=== PATIENT | male | born 1950 | race Hispanic/Latino ===

== ENCOUNTER 2018-12-04 11:04 | Day surgery (SDC) | payer MEDICARE ==
[2018-11-27 12:37] VITALS: BMI 17.9
--- NOTE | 2018-12-04 12:04 | CARD ---
APPROVED REPORT Date of service: 12/04/2018 EKG Measurement Heart [id number] <Conclusion> Atrial fibrillation Left axis deviation Low voltage QRS Abnormal ECG
[2018-12-04] MEDS ORDERED: Midazolam 2 MG/2 ML VIAL ONE (12:38)
[2018-12-04] MEDS ORDERED: Propofol 10 mg/ml Inj (20 ML) ONE (12:44)
[2018-12-04] MEDS ORDERED: Phenylephrine 10 mg/ml Inj ONE (12:45)
[2018-12-04] MEDS ORDERED: Etomidate 20 mg/10ml Inj IV ONE (12:45)
[2018-12-04] MEDS ORDERED: ePHEDrine 50 mg/ml Inj ONE (12:45)
[2018-12-04] MEDS ORDERED: Lactated Ringer's 1,000 ML IV SCH (13:30)
[2018-12-04 14:27] VITALS: RESP 20; TEMP 97.7; O2SAT 97
[2018-12-04 15:28] VITALS: BP 115/82; PULSE 55
--- NOTE | 2018-12-04 17:54 | CARD ---
APPROVED REPORT Date of service: 12/04/2018 EKG Measurement Heart [id number] <Conclusion> Sinus bradycardia Low voltage QRS Left anterior fascicular block Inferior infarct, age undetermined Abnormal ECG
--- NOTE | 2018-12-05 13:27 | CARD ---
APPROVED REPORT Date of service: 12/04/2018 EXAM: Transesophageal echocardiogram with color flow Doppler and Synchronized Cardioversion. INDICATION Atrial Fibrillation Mitral Valve E/A ratio0.0 TDI E/Lateral E'0.0E/Medial E'0.0 PROCEDURE After obtaining informed consent, patient underwent transesophageal echo in the Type of Sedation : Conscious Sedation Sedation was provided by anesthesiologist. Sedation was achieved with intravenously. The FLYNN was performed complications. Throughout the procedure, the blood pressure, pulse oximetry, cardiac rhythm, and rate were monitored. LEFT VENTRICLE The left ventricle is normal size. There is normal left ventricular wall thickness. The left ventricular function is normal. The left ventricular ejection fraction is within the normal range. There is normal LV segmental wall motion. No left ventricle thrombus noted on this study. There is no ventricular septal defect visualized. There is no left ventricular aneurysm. There is no mass noted in the left ventricle. RIGHT VENTRICLE The right ventricle is normal size. There is normal right ventricular wall thickness. The right ventricular systolic function is normal. ATRIA Velocities greater than 0.4 MS The left atrium is moderately dilated. There is no thrombus suspected in the left atrium. The right atrium size is normal. Buble study and color doppler consistent with smal PFO. AORTIC VALVE The aortic valve is normal in structure. No aortic regurgitation is present. There is no aortic valvular stenosis. There is no aortic valvular vegetation. MITRAL VALVE The mitral valve is normal in structure. There is no evidence of mitral valve prolapse. There is no mitral valve stenosis. Mitral regurgitation is mild to moderate. TRICUSPID VALVE The tricuspid valve is normal in structure. There is no tricuspid valve regurgitation noted. There is no tricuspid valve prolapse or vegetation. PULMONIC VALVE The pulmonary valve is normal in structure. There is no pulmonic valvular regurgitation. There is no pulmonic valvular stenosis. GREAT VESSELS The aortic root is normal in size. The ascending aorta is normal in size. <Conclusion> No evidence of threobus in the BRYN. Normal LV size and function. SMAL PFO noted. SUCCESSFUL D/C CV with 200J to NORMAL SINUS RHYTHM. Patient tolerated procedure without incident.
== END 2018-12-04 16:40 | disposition home or self-care (01) ==
LOC: TEE 11:04
PROVIDERS: ATTEND Internal Medicine Cardiovascular Disease
DX: I48.91 Unspecified atrial fibrillation (principal)
CPT/HCPCS: 92960; 93005; 93312; J2001; J2250; J2704; J3010; J7120

== ENCOUNTER 2019-03-13 08:50 | Outpatient (CLI) | payer MEDICARE | END 2019-03-13 08:51 | disposition home or self-care (01) | LOC: LAB 08:50 ==